=== PATIENT | male | born 1950 | race Caucasian/White ===

== ENCOUNTER 2018-09-23 13:50 | Inpatient (IN) | payer MEDICARE ==
[~2018-09-23] VITALS: Ht 182.9 cm; Wt 70.3 kg
[2018-09-23] MEDS ORDERED: GABA600T12 PO (14:20)
[2018-09-23] MEDS ORDERED: TRAZ-214 PO (14:20)
[2018-09-23] MEDS ORDERED: LORAZEPAM 0.5 MG TABLET PO PRN ×2 (14:30→20:30)
[2018-09-23] MEDS ORDERED: MAGNESIUM HYDROXIDE 30 ML UDC PO PRN (14:30)
[2018-09-23] MEDS ORDERED: MAG HYDROX/AL HYDROX/SIMETH 30 ML UDC PO PRN (14:30)
[2018-09-23] MEDS ORDERED: ACETAMINOPHEN 325 MG TABLET PO PRN (14:30)
[2018-09-23 16:00] VITALS: BP 124/66
[2018-09-23] MEDS: LORAZEPAM 1 MG TABLET PO PRN ×2 (16:24→21:34)
[2018-09-23] MEDS: GABAPENTIN 300 MG CAPSULE PO SCH ×2 (17:08→21:34)
[2018-09-23 20:21] VITALS: BP 120/63
[2018-09-23] MEDS: TEMAZEPAM 7.5 MG CAPSULE PO PRN (23:11)
[2018-09-24] MEDS: LORAZEPAM 1 MG TABLET PO PRN ×3 (05:18→17:23)
[2018-09-24 07:16] LABS: ALBUMIN 2.7 g/dL (3.4-5.0); BILIRUBIN,TOTAL 1.1 mg/dL (0.2-1.0); CALCIUM, SERUM 8.3 mg/dL (8.5-10.1); CREATININE 1.1 mg/dL (0.6-1.3); POTASSIUM 3.1 mmol/L (3.5-5.1); TOTAL PROTEIN, SERUM 5.2 g/dL (6.4-8.2)
[2018-09-24 08:00] VITALS: BP 100/50
[2018-09-24] MEDS: GABAPENTIN 300 MG CAPSULE PO SCH ×3 (08:38→21:56)
[2018-09-24] MEDS ORDERED: POTASSIUM CHLORIDE 20 MEQ TAB.PRT.SR PO SCH (10:30)
[2018-09-24] MEDS ORDERED: TRAZ300T2 PO (12:04)
[2018-09-24] MEDS ORDERED: GABA600T12 PO (12:04)
[2018-09-24 16:00] VITALS: BP 103/61
[2018-09-24 20:23] VITALS: BP 103/57
[2018-09-24] MEDS: TEMAZEPAM 7.5 MG CAPSULE PO PRN (21:55)
[2018-09-25] MEDS: LORAZEPAM 1 MG TABLET PO PRN ×4 (00:59→23:29)
[2018-09-25 07:36] LABS: CALCIUM, SERUM 8.4 mg/dL (8.5-10.1); CREATININE 1.1 mg/dL (0.6-1.3); POTASSIUM 3.7 mmol/L (3.5-5.1)
[2018-09-25 08:00] VITALS: BP 110/69
[2018-09-25] MEDS: GABAPENTIN 300 MG CAPSULE PO SCH ×3 (08:16→21:58)
[2018-09-25 16:00] VITALS: BP 102/64
[2018-09-25 20:00] VITALS: BP 95/68
[2018-09-25] MEDS: TEMAZEPAM 7.5 MG CAPSULE PO PRN (21:58)
[2018-09-26] MEDS: LORAZEPAM 1 MG TABLET PO PRN ×2 (06:24→13:29)
[2018-09-26 08:00] VITALS: BP 112/74
[2018-09-26] MEDS: GABAPENTIN 300 MG CAPSULE PO SCH (08:56)
[2018-09-26 16:00] VITALS: BP 128/83
== END 2018-09-26 17:00 | disposition home or self-care (01) | DRG 885 ==
LOC: GPS 13:50
PROVIDERS: ADMIT Psychiatry & Neurology Psychiatry
DX: F39 Unspecified mood [affective] disorder (principal); E46 Unspecified protein-calorie malnutrition; R45.851 Suicidal ideations; F10.20 Alcohol dependence, uncomplicated; E87.6 Hypokalemia; F32.9 Major depressive disorder, single episode, unspecified; Z91.5 Personal history of self-harm; E88.09 Other disorders of plasma-protein metabolism, not elsewhere classified; Z68.21 Body mass index [BMI] 21.0-21.9, adult
CPT/HCPCS: 36415; 80048-TC; 80053-TC; 80061-TC

== ENCOUNTER 2020-03-15 11:26 | Emergency (ER) | payer BC, MEDICARE ==
[~2020-03-15] VITALS: Ht 182.9 cm; Wt 66.2 kg
--- NOTE | 2020-03-15 11:26 | NUR ---
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 TO ER BED 9, HOOKED TO SOLAR SALES ADVISOR, BP CUFF AND POX. CHANGED TO HOSP GOWN, WARM BLANKET PROVIDED, PATIENT AAO x 4, BREATHING EVEN AND UNLABORED, NAD NOTED. DR BLACKMON AT BEDSIDE
[2020-03-15] MEDS ORDERED: LORAZEPAM INJ 2 MG/ML VIAL IVP ONE (11:30)
[2020-03-15] MEDS ORDERED: LORAZEPAM INJ 2 MG/ML VIAL ONE ×2 (11:47→13:23)
--- NOTE | 2020-03-15 12:36 | NUR ---
PICKED UP BY SOUND SYSTEM INSTALLER VIA [facility] FOR CT SCAN.
[2020-03-15 13:02] LABS: BASOPHILS % (AUTO) 0.7 % (0.0-2.0); EOSINOPHILS % (AUTO) 2.4 % (0.0-6.0); HEMATOCRIT 42 % (39-51); HEMOGLOBIN 13.8 g/dL (13.5-17.5); LYMPHOCYTES # (AUTO) 0.9 /CMM (0.8-4.8); LYMPHOCYTES % (AUTO) 18.3 % (20.0-44.0); MEAN CORPUSCULAR HGB CONC 33 g/dl (31.0-36.0); MEAN CORPUSCULAR VOLUME 87 fL (80-96); MONOCYTES # (AUTO) 0.3 /CMM (0.1-1.30); MONOCYTES % (AUTO) 6.5 % (2.0-12.0); NEUTROPHILS # (AUTO) 3.6 /CMM (1.8-8.9); NEUTROPHILS % (AUTO) 72.1 % (43.0-81.0); PLATELET COUNT (AUTO) 230 /CMM (150-450); RED BLOOD CELL COUNT(AUTO) 4.84 MIL/uL (4.5-6.0)
[2020-03-15 13:13] LABS: CALCIUM, SERUM 9.2 mg/dL (8.5-10.1); CARBON DIOXIDE 22 mmol/L (21-32); CHLORIDE 105 mmol/L (98-107); CREATININE 1.1 mg/dL (0.6-1.3); GLUCOSE 76 mg/dL (74-106); POTASSIUM 4.4 mmol/L (3.5-5.1); SODIUM SERUM 140 mmol/L (136-145); UREA NITROGEN, BLOOD 12 mg/dL (7-18)
[2020-03-15 13:19] LABS: ALANINE AMINOTRANSFERASE 22 U/L (12-78); ALBUMIN 3.4 g/dL (3.4-5.0); ALKALINE PHOSPHATASE 78 U/L (46-116); ASPARTATE AMINOTRANSFERASE 14 U/L (15-37); BILIRUBIN,DIRECT 0.1 mg/dL (0.0-0.2); BILIRUBIN,TOTAL 0.5 mg/dL (0.2-1.0); TOTAL PROTEIN, SERUM 6.8 g/dL (6.4-8.2)
[2020-03-15 13:23] LABS: ACETAMINOPHEN < 2 ug/ml (10-30); ALCOHOL, BLOOD < 3 mg/dL (0-0)
[2020-03-15] MEDS ORDERED: LORAZEPAM INJ 2 MG/ML VIAL IV ONE (13:30)
--- NOTE | 2020-03-15 13:38 | NUR ---
project reservoir engineer at bedside to apply shoulder sling
--- NOTE | 2020-03-15 13:51 | NUR ---
IV removed. Catheter intact and site benign. Pressure and 4x4 applied to site. No bleeding noted.Patient discharged with sober tray drier operator Telma in stable condition. Written and verbal after care instructions given. Patient verbalizes understanding of instruction. Patient assisted to waiting room where sober tray drier operator is waiting
[2020-03-15 14:13] VITALS: BP 131/71
== END 2020-03-15 14:23 | disposition home or self-care (01) ==
LOC: ER 11:29
DX: S42.251A Displaced fracture of greater tuberosity of right humerus, initial encounter for closed fracture (principal); G40.409 Other generalized epilepsy and epileptic syndromes, not intractable, without status epilepticus; F17.200 Nicotine dependence, unspecified, uncomplicated; Z60.2 Problems related to living alone; X58.XXXA Exposure to other specified factors, initial encounter; Y93.89 Activity, other specified; Y92.89 Other specified places as the place of occurrence of the external cause; Y99.8 Other external cause status
CPT/HCPCS: 36415; 70450; 73030; 73200; 80048; 80076; 80299; 80320; 85025; 96374; 96376; 99285; J2060 ×2; G0480